=== PATIENT | male | born 1980 | race Caucasian/White ===

== ENCOUNTER 2023-01-25 17:49 | Emergency (ER) | payer OTHER ==
[~2023-01-25] VITALS: Ht 165.1 cm; Wt 65.8 kg
--- NOTE | 2023-01-25 17:50 | NUR ---
PADDED RAILS ADD TO PT BED FOR SAFETY
--- NOTE | 2023-01-25 17:50 | NUR ---
PT BIBA AWAKE AND ALERT AOX4. NO SOB OR DISTRESS. PT COMING IN FROM [facility] FOR DETOX. PT WAS WITNESSED TO HAVING A SEIZURE LASTING 4 MINS. PT DENIES PAIN. PT HAS NO HISTORY OF SEIZURE. PT DENIES HX AND SX. PT STATES HE HIS LAST DRINK WAS 2 DAYS AGO. PT STATED HES BEEN DRINKING EVERYDAY FOR X3 MONTHS STRAIGHT. PT DRINKS 2 PINTS OF VODKA AND BEER EVERYDAY. PT WAS SOBER FOR 1 YEAR BEFORE HE RELAPSED. PT HAS SLIGHT LACERATION TO LEFT TOUNGE. NO ACTIVE BLEEDING PRESENT.
--- NOTE | 2023-01-25 17:51 | NUR ---
MD DR SEGURA AT BEDSIDE
[2023-01-25 17:54] VITALS: BP_SYST 139
[2023-01-25] MEDS ORDERED: NACL 0.9% 2,000 ML IV ONE (18:00)
[2023-01-25] MEDS ORDERED: LORazepam 2 MG/ML VIAL IVP ONE (18:00)
--- NOTE | 2023-01-25 18:05 | NUR ---
PT TAKEN TO CT
--- NOTE | 2023-01-25 18:15 | NUR ---
PT RETURNED FROM CT
[2023-01-25 18:40] LABS: HEMATOCRIT 35.8 % (36-54); HEMOGLOBIN 12.4 g/dL (14.0-18.0); MEAN CORPUSCULAR HEMOGLOBIN 34 pg (27-31); MEAN CORPUSCULAR HGB CONC 35 % (32-36); MEAN CORPUSCULAR VOLUME 99 fL (79.0-98.0); PLATELET COUNT (AUTO) 121 K/uL (130-430); RED BLOOD CELL COUNT(AUTO) 3.61 MIL/uL (4.2-6.2); RED CELL DISTRIBUTION WIDTH 16.3 % (9.0-15.0); WHITE BLOOD COUNT (AUTO) 4.8 K/uL (4.8-10.8)
[2023-01-25 18:55] LABS: ALANINE AMINOTRANSFERASE 117 U/L (12-78); ALBUMIN 3.1 g/dL (3.4-4.8); ANION GAP 9 (5-15); ASPARTATE AMINOTRANSFERASE 70 U/L (10-37); CHLORIDE 102 mmol/L (98-107); GFR AFRICAN AMERICAN 159 mL/min (>90); GLUCOSE 118 mg/dL (70-99); TOTAL BILIRUBIN 0.9 mg/dL (0.0-1.0); UREA NITROGEN, BLOOD 8 mg/dL (8-21)
[2023-01-25 19:07] LABS: ALCOHOL, BLOOD < 3 mg/dL (<10)
--- NOTE | 2023-01-25 19:28 | NUR ---
REPORT GIVEN TO DINORAH NUÑEZ
[2023-01-25 20:10] LABS: ATYPICAL LYMPHOCYTES % 17 % (0-0); BAND % (MANUAL) 3 % (0-6); BASOPHILS % (MANUAL) 0 % (0-2); EOSINOPHILS % (MANUAL) 0 % (0-7); LYMPHOCYTES % (MANUAL) 25 % (20-46); MONOCYTES % (MANUAL) 2 % (0-11)
--- NOTE | 2023-01-25 20:30 | NUR ---
Spoke with DANA Brian at [facility] and gave report. Awaiting for transportation at this time and will be set up.
--- NOTE | 2023-01-26 04:51 | NUR ---
REPORT CALLED TO DANA BARRAGAN
--- NOTE | 2023-01-26 05:29 | NUR ---
Patient given written and verbal discharge instructions and verbalizes understanding. ER LUISANA discussed with patient the results and treatment provided. Patient in stable condition. ID arm band removed. IV catheter removed intact and dressing applied, no active bleeding. NO Px of given. Patient educated on pain management and to follow up with PMD. Pain Scale . Opportunity for questions provided and answered. Medication side effect fact sheet provided.
[2023-01-26 05:31] VITALS: BP_SYST 122
== END 2023-01-26 05:34 ==
LOC: SED 17:49
DX: R56.9 Unspecified convulsions (principal); Z79.899 Other long term (current) drug therapy
CPT/HCPCS: 99285; 96374; 70450; 96361; 85027; 80053; 85007; 36415; 76376; 83605; G0482; J2060; J7030